=== PATIENT | female | born 1940 | race Caucasian/White ===

== ENCOUNTER 2021-06-11 21:40 | Emergency (ER) | payer OTHER, MEDICARE ==
[2021-06-11] MEDS ORDERED: Boostrix 0.5 ML (Tdap) VIAL ONE (21:52)
[2021-06-11] MEDS ORDERED: Bacitracin 1 PK ONE (21:52)
[2021-06-11] MEDS ORDERED: Cephalexin 250 MG CAP ONE (22:48)
== END 2021-06-11 23:12 | disposition home or self-care (01) ==
LOC: BURERS 21:40
DX: S02.2XXA Fracture of nasal bones, initial encounter for closed fracture (principal); S02.5XXA Fracture of tooth (traumatic), initial encounter for closed fracture; S01.511A Laceration without foreign body of lip, initial encounter; W01.10XA Fall on same level from slipping, tripping and stumbling with subsequent striking against unspecified object, initial encounter; Z23 Encounter for immunization; Z79.899 Other long term (current) drug therapy
CPT/HCPCS: 70450; 70486; 72125; 90471; 90715